=== PATIENT | male | born 1960 | race African-American/Black ===

== ENCOUNTER 2016-09-27 22:42 | Emergency (ER) | payer MEDICARE | END 2016-09-28 01:03 | disposition home or self-care (01) | LOC: FER 22:42 | DX: L03.011 Cellulitis of right finger (principal); I10 Essential (primary) hypertension; E11.9 Type 2 diabetes mellitus without complications; F17.210 Nicotine dependence, cigarettes, uncomplicated; Z79.4 Long term (current) use of insulin; Z79.84 Long term (current) use of oral hypoglycemic drugs; Z79.82 Long term (current) use of aspirin; Z79.899 Other long term (current) drug therapy | CPT/HCPCS: 87070; 87077; 87186; 87205 ==